=== PATIENT | female | born 1985 | race Caucasian/White ===

== ENCOUNTER 2018-02-09 08:36 | Emergency (ER) | payer SELFPAY ==
[2018-02-09 08:53] VITALS: BP 118/78; BMI 32.8
[2018-02-09 09:14] LABS: APPEARANCE,URINE HAZY (CLEAR); BILIRUBIN,URINE NEGATIVE (NEGATIVE); BLOOD/HEMOGLOBIN,URINE 1+ (NEGATIVE); COLOR,URINE YELLOW (YELLOW); GLUCOSE, URINE 4+ (NEGATIVE); KETONES,URINE NEGATIVE (NEGATIVE); LEUKOCYTE ESTERASE ,URINE 2+ (NEGATIVE); NITRITES,URINE POSITIVE (NEGATIVE); PROTEIN,URINE 1+ (NEGATIVE); UROBILINOGEN,URINE 1+ (NORMAL)
--- NOTE | 2018-02-09 09:17 | DR.FBACK ---
HPI - Time Seen Time seen: 09:04 - PCP Primary Care Physician: nfd - Complaint Chief Complaint Doctor Comments: Patient reports that she has back pain onset two weeks ago. She admits to starting a new job at [employer] recently and every since then she has been having back problems. The pain is 5/10 sharp, duration hours.She admits to being seen in [place] last week for same complaint and diagnosed with uti. Chief Complaint:: pt stated for over a week she has been having lower back pain on her right side. was seen in [place] and was told she had a sinus infection. she stated the pain may be from a uti or she hurt her back at work. - Source History Provided: Patient - Mode of Arrival Mode of Arrival: Ambulatory - Timing Onset of Chief Complaint: 02/02/18 PMH - PMH Past Medical History: Yes Past Medical History: Diabetes Past Surgical History: Yes Surgical History: , Hysterectomy - Family History History of Family Medical Conditions: Yes Family Medical History: Diabetes Mellitus, Cancer - Social History Does patient currently use any type of tobacco product: No Have you used tobacco products in the last 12 months: No Type of Tobacco Use: None Does any household member use tobacco: No Alcohol Use: None Do you use any recreational Drugs:: No Lives With: Family Lives Where: Home - infectious screening In the last 2 months have you had wt loss of >10#?: NO Have you had fever, night sweats or hemotysis?: No Have you traveled outside the country in the last 6 months?: No Isolation: Standard ROS - Review of Systems Eyes: No Symptoms Reported, Eye Pain Respiratoy: No Symptoms Reported Cardiovascular: No Symptoms Reported Gastrointestinal/Abdominal: No Symptoms Reported Genitourinary: No Symptoms Reported Neurological: No Symptoms Reported Musculoskeletal: No Symptoms Reported Integumentary: No Symptoms Reported Hematologic/Lymphatic: No Symptoms Reported Endocrine: No Symptoms Reported Psychiatric: No Symptoms Reported All Other Systems: Reviewed and Negative PE - Vitals Vital Signs: Temp Pulse Resp BP Pulse Ox 02/09/18 08:38 97.2 F L 91 H 16 118/78 99 08/28/15 22:18 119/80 - General Limitations: No Limitations General Appearance: Alert, In No Apparent Distress - Head Head Exam: Normal Inspection, Atraumatic - Eyes Eye exam: Normal Appearance, PERRL, EOMI - ENT ENT Exam: Normal Exam - Chest Chest Inspection: Normal Inspection - Respiratory Respiratory Exam: Normal Lung Sounds Bilat Respiratory Exam: Bilateral Clear to Auscultation - Cardiovascular Cardiovascular Exam: Regular Rate, Normal Rhythm - Abdominal Exam Abdominal Exam: Normal Inspection, Normal Bowel Sounds Abdominal Tenderness: negative: RUQ, RLQ, LUQ, LLQ, Epigastrium, Suprapubic, Diffuse, Mild, Moderate, Severe, Other - Genitourinary External Exam: Female: Deferred : Speculum Exam (Female): Deferred : Bimanual Exam (female): negative: Normal Bimanual exam, Deferred, Cervical Motion Tenderness, Adnexal Tenderness, Right Adnexal Tenderness, Left Adenexal Tenderness, Adnexal Mass, Right Adnexal Mass, Left Adnexal Mass, Uterine Enlargement, Uterine Tenderness, Other - Extremities Extremities Exam: Normal Inspection - Back Back Exam: Normal Inspection, Full ROM, (R) CVA Tenderness - Neurological Neurological Exam: Alert, Oriented X3, CN II-XII Intact - Psychiatric Psychiatric Exam: Normal Affect - Skin Skin Exam: Warm, Dry Course - Reevaluation 1st: Unchanged - Education/Counseling Educated On: Treatment, Diagnosis, Prognosis, Needs for Follow Up ROR - Labs Reviewed Laboratory Results Reviewed?: Yes (UA: Prot+1,Nit +,Leuk Est 2+, wbc 5-10) Laboratory: Specimen Type Clean catch urine 02/09/18 08:54 Urine Color Yellow (YELLOW) 02/09/18 08:54 Urine Appearance Hazy (CLEAR) 02/09/18 08:54 Urine pH 6.0 (5.0 - 8.0) 02/09/18 08:54 Ur Specific Wilbur 1.025 (1.000-1.030) 02/09/18 08:54 Urine Protein 1+ (NEGATIVE) 02/09/18 08:54 Urine Glucose (UA) 4+ (NEGATIVE) 02/09/18 08:54 Urine Ketones Negative (NEGATIVE) 02/09/18 08:54 Urine Occult Blood 1+ (NEGATIVE) 02/09/18 08:54 Urine Nitrite Positive (NEGATIVE) 02/09/18 08:54 Urine Bilirubin Negative (NEGATIVE) 02/09/18 08:54 Urine Urobilinogen 1+ (NORMAL) 02/09/18 08:54 Ur Leukocyte Esterase 2+ (NEGATIVE) 02/09/18 08:54 Urine RBC 3-5 /HPF (NONE SEEN) 02/09/18 08:54 Urine WBC 5-10 /HPF (NONE SEEN) 02/09/18 08:54 Ur Squamous Epith Cells Many /HPF (NEGATIVE) 02/09/18 08:54 Amorphous Sediment Trace /HPF (NEGATIVE) 02/09/18 08:54 Urine Bacteria 3+ /HPF (NEGATIVE) 02/09/18 08:54 Urine Mucus Moderate /HPF (NEGATIVE) 02/09/18 08:54 Ur Culture Indicated? No/not indicated 02/09/18 08:54 - Diagnosis Discharge Problem: UTI (urinary tract infection) Qualifiers: Urinary tract infection type: acute cystitis Hematuria presence: with hematuria Qualified Code(s): N30.01 - Acute cystitis with hematuria Back pain Qualifiers: Back pain laterality: right Sciatica presence: without sciatica - Follow ups/Referrals Follow ups/Referrals: NFD,None [Primary Care Provider] - 3 days - Instructions
[2018-02-09 09:39] LABS: AMORPHOUS SEDIMENT,UR TRACE /HPF (NEGATIVE); BACTERIA,URINE 3+ /HPF (NEGATIVE); MUCUS,URINE MODERATE /HPF (NEGATIVE); SQUAMOUS EPITHELIAL CELL,UR MANY /HPF (NEGATIVE)
== END 2018-02-09 09:59 | disposition home or self-care (01) ==
LOC: ER 08:48
DX: N30.01 Acute cystitis with hematuria (principal); M54.5 Low back pain; B96.29 Other Escherichia coli [E. coli] as the cause of diseases classified elsewhere
CPT/HCPCS: 81001; 87086; 87088; 87186; 99282; 99283